=== PATIENT | female | born 1950 | race Caucasian/White ===

== ENCOUNTER 2021-08-31 11:40 | Emergency (ER) | payer OTHER, BC ==
[2021-08-31 11:54] VITALS: BMI 35.4
[2021-08-31] MEDS ORDERED: DEXAMETHASONE SOD PHOSPHATE 10 MG/1 ML VIAL IM ONE (12:05)
[2021-08-31] MEDS ORDERED: FAMOTIDINE 10 MG TABLET PO ONE (12:05)
[2021-08-31] MEDS ORDERED: FAMOTIDINE 10 MG TABLET ONE (12:16)
[2021-08-31] MEDS ORDERED: DEXAMETHASONE SOD PHOSPHATE 10 MG/1 ML VIAL ONE (12:16)
[2021-08-31 14:52] VITALS: BP 140/88; PULSE 91; TEMP 98.2
== END 2021-08-31 14:51 | disposition home or self-care (01) ==
LOC: JER 11:40
PROC: 3E023GC Introduction of Other Therapeutic Substance into Muscle, Percutaneous Approach (ICD-10-PCS; principal; 2021-08-31)
DX: T78.2XXA Anaphylactic shock, unspecified, initial encounter (principal)
CPT/HCPCS: 99284-25; J1100